=== PATIENT | female | born 1990 | race Caucasian/White ===

== ENCOUNTER 2025-05-02 14:47 | Emergency (ER) | payer MEDICAID ==
[2025-05-02] MEDS: Glucagon,Human Recombinant 1 MG Vial IVPUSH ONE (14:49)
[2025-05-02] MEDS ORDERED: Sodium Chloride 0.9% 10 ML Syringe FLUSH PRN (15:24)
[2025-05-02] MEDS: Sodium Chloride 0.9% 1,000 ML IV SCH (15:46)
[2025-05-02] MEDS: Sodium Chloride 0.9% 50 ML SDV FLUSH ONE (15:48)
[2025-05-02] MEDS: Iopamidol 612 MG/ML 100 ML Bottle IV SCH (15:48)
[2025-05-02] MEDS: Tenecteplase 50 MG Kit IV ONE (15:58)
[2025-05-02 16:09] LABS: HEMATOCRIT 40.8 % (37.0-47.0); HEMOGLOBIN 13.7 g/dL (11.5-16.5); MEAN CORPUSCULAR HEMOGLOBIN 30.6 pg (27.0-32.0); MEAN CORPUSCULAR HGB CONC 33.6 g/dL (31.0-35.0); MEAN CORPUSCULAR VOLUME 91 fL (76-96); MEAN PLATELET VOLUME 11.6 fL (6.0-10.0); PLATELET COUNT,PLT 142 K/uL (150-500); RED BLOOD CELL COUNT 4.48 M/uL (3.80-5.80); RED CELL DISTRIBUTION WIDTH 12.9 % (11.0-16.0); WHITE BLOOD CELL COUNT,WBC 15.6 K/uL (4.0-11.0)
[2025-05-02 16:31] LABS: GIANT PLATELETS RARE; PLATELET COUNT ESTIMATE DECREASED
[2025-05-02 16:32] LABS: PLATELET CLUMPS RARE
[2025-05-02 16:38] LABS: A/G RATIO 0.9 (0.8-2.0); ALBUMIN 3.5 g/dL (3.4-5.0); ANION GAP 13.7 mmol/L (5.0-15.0); BILIRUBIN TOTAL 0.5 mg/dL (0.0-1.0); BUN/CREATININE RATIO 19.3 (6-25); CALCIUM 8.8 mg/dL (8.5-10.1); CREATININE 0.88 mg/dL (0.55-1.02); EST CRCL DRUG DOSING (CG) 85.12 mL/min; POTASSIUM,K 3.7 mmol/L (3.5-5.1); PROTEIN TOTAL,TP 7.2 g/dL (6.4-8.2)
== END 2025-05-02 16:28 ==
LOC: LB.ED 14:47
DX: I63.9 Cerebral infarction, unspecified (principal)
CPT/HCPCS: 36415; 37195; 70450; 70496; 70498; 80053; 82947; 85025; 96374; 99285-25; A0425; A0429; J1610; J3101; J7030; Q9967